=== PATIENT | female | born 1965 | race Caucasian/White ===

== ENCOUNTER → 2016-09-03 | Outpatient (CLI) | payer BC ==
--- NOTE | 2016-09-03 09:23 | KCIC ---
PROCEDURE MRI right shoulder without contrast dated 09/03/2016. HISTORY Right shoulder pain. Decreased range of motion. TECHNIQUE Routine multiplanar multisequence MR imaging right shoulder performed. No contrast administered. COMPARISON None. FINDINGS Large full-thickness tear of the rotator cuff involving the entire supraspinatus tendon and likely the upper margin of the subscapularis. The defect measures 3.2 x 3.1 centimeters AP and transverse dimensions. The torn portion of the cuff is retracted to about the 1 o'clock position. Increased signal and thickening of the infra spinatus tendon with suspected minimal full-thickness involvement of its anterior fibers. Teres minor is intact. Mild hypertrophic change of the acromioclavicular joint with mild undersurface spurring of the distal clavicle and acromion. Small amount of subacromial/subdeltoid bursal fluid. The acromion is type 1 morphology. Intermediate T2 signal and thinning of the long head biceps tendon proximally. Extra-articular portion is visualized in the bicipital groove. Biceps anchor ill-defined. Blunted morphology of the posterior superior labrum with suspected tiny paralabral cysts. Inferior labrum intact. Mild thinning of the glenoid articular cartilage. Small glenohumeral joint effusion. No loose body. Mild fatty atrophy and volume loss of the supraspinatus muscle. No significant intramuscular edema. Suprascapular and spinoglenoid notches are clear. IMPRESSION - Rotator cuff tendinopathy with large full thickness rotator cuff tear as described above. - Moderate AC joint arthropathy with undersurface spurring. Small subacromial/subdeltoid bursal effusion. - SLAP tear of the posterior superior labrum with suspected small paralabral cysts. - Poor visualization of the proximal long head biceps tendon, likely related to severe tendinosis and/or partial tearing. - Mild degenerative change of the glenohumeral joint with glenoid chondromalacia. Electronically signed by: Brennan Hernandez (Sep 03, 2016 09:22:19)
== END | disposition home or self-care (01) ==
LOC: KCIC MRI 08:18
PROVIDERS: ATTEND Family Medicine
DX: M75.121 Complete rotator cuff tear or rupture of right shoulder, not specified as traumatic (principal); M25.411 Effusion, right shoulder; S43.439A Superior glenoid labrum lesion of unspecified shoulder, initial encounter; M94.211 Chondromalacia, right shoulder; M19.011 Primary osteoarthritis, right shoulder; X58.XXXA Exposure to other specified factors, initial encounter; Y99.8 Other external cause status; Y92.89 Other specified places as the place of occurrence of the external cause; Y93.89 Activity, other specified
CPT/HCPCS: 73221

== ENCOUNTER 2017-04-14 20:24 | Emergency (ER) | payer BC ==
[~2017-04-14] VITALS: Ht 160 cm; Wt 95.3 kg
--- NOTE | 2017-04-14 20:43 | PHYS DOC ---
Adult General Chief Complaint Chief Complaint: ABDOMINAL PAIN HPI HPI Patient is a 51 year old female who presents with rate umbilical discomfort this started around 5 PM tonight and belching. She states it comes and waves and comes on for a while and goes when about 3 hours later. He returns. She also states she's felt nauseated but denies any vomiting. She denies any chest pain shortness of breath. She had a last bowel movement yesterday. She's had a cholecystectomy in the past and has lost 70 pounds over the last year after being put on phentermine and a diet. She states she feels irritated her esophagus. She's been belching so much. Review of Systems Review of Systems Constitutional: Denies fever or chills [] Eyes: Denies change in visual acuity, redness, or eye pain [] HENT: Denies nasal congestion or sore throat [] Respiratory: Denies cough or shortness of breath [] Cardiovascular: No additional information not addressed in HPI [] GI: Denies abdominal pain, nausea, vomiting, bloody stools or diarrhea [] : Denies dysuria or hematuria [] Musculoskeletal: Denies back pain or joint pain [] Integument: Denies rash or skin lesions [] Neurologic: Denies headache, focal weakness or sensory changes [] Endocrine: Denies polyuria or polydipsia [] Current Medications Current Medications Current Medications Medications (Trade) Dose Ordered Sig/Micah Start Time Stop Time Status Last Admin Dose Admin Info (Do NOT chart on this entry -- for MONITORING) 1 each PRN DAILY PRN 04/14/17 22:45 04/16/17 22:44 Iohexol (Omnipaque 240 Mg/ml) 50 ml STK-MED ONCE 04/14/17 22:34 04/14/17 22:35 DC Iohexol (Omnipaque 300 Mg/ml) 75 ml STK-MED ONCE 04/14/17 22:34 04/14/17 22:35 DC Potassium Chloride (Klor-Con) 20 meq STK-MED ONCE 04/15/17 00:49 04/15/17 00:50 DC Simethicone (Gas-X) 80 mg PRN AFTMEALHC PRN 04/15/17 01:00 Allergies Allergies Allergies Coded Allergies Type Severity Reaction Last Updated Verified No Known Drug Allergies 04/14/17 No Physical Exam Physical Exam Constitutional: Well developed, well nourished, no acute distress, non-toxic appearance. [] HENT: Normocephalic, atraumatic, bilateral external ears normal, oropharynx moist, no oral exudates, nose normal. [] Eyes: PERRLA, EOMI, conjunctiva normal, no discharge. [] Neck: Normal range of motion, no tenderness, supple, no stridor. [] Cardiovascular:Heart rate regular rhythm, no murmur [] Lungs & Thorax: Bilateral breath sounds clear to auscultation [] Abdomen: Bowel sounds hyperactive, soft, no tenderness, no masses, no pulsatile masses. [] Skin: Warm, dry, no erythema, no rash. [] Back: No tenderness, no CVA tenderness. [] Extremities: No tenderness, no cyanosis, no clubbing, ROM intact, no edema. [] Neurologic: Alert and oriented X 3, normal motor function, normal sensory function, no focal deficits noted. [] Psychologic: Affect normal, judgement normal, mood normal. [] Current Patient Data Vital Signs Vital Signs Date Time Temp Pulse Resp B/P (MAP) Pulse Ox O2 Delivery O2 Flow Rate FiO2 04/14/17 22:50 70 13 104/64 (77) 98 04/14/17 21:20 Room Air 04/14/17 21:03 98.3 98.3 Lab Values Laboratory Tests Test 04/14/17 20:35 04/14/17 20:50 04/14/17 23:35 04/14/17 23:40 Urine Opiates Screen Neg (NEG) Urine Methadone Screen Neg (NEG) Urine Barbiturates Neg (NEG) Urine Phencyclidine Screen Neg (NEG) Urine Amphetamine/Methamphetamine Pos (NEG) Urine Benzodiazepines Screen Neg (NEG) Urine Cocaine Screen Neg (NEG) Urine Cannabinoids Screen Neg (NEG) Urine Ethyl Alcohol Neg (NEG) White Blood Count 13.1 x10^3/uL (4.0-11.0) H Red Blood Count 4.77 x10^6/uL (3.50-5.40) Hemoglobin 14.7 g/dL (12.0-15.5) Hematocrit 43.0 % (36.0-47.0) Mean Corpuscular Volume 90 fL (79-100) Mean Corpuscular Hemoglobin 31 pg (25-35) Mean Corpuscular Hemoglobin Concent 34 g/dL (31-37) Red Cell Distribution Width 13.3 % (11.5-14.5) Platelet Count 269 x10^3/uL (140-400) Neutrophils (%) (Auto) 76 % (31-73) H Lymphocytes (%) (Auto) 16 % (24-48) L Monocytes (%) (Auto) 6 % (0-9) Eosinophils (%) (Auto) 1 % (0-3) Basophils (%) (Auto) 0 % (0-3) Neutrophils # (Auto) 10.0 x10^3uL (1.8-7.7) H Lymphocytes # (Auto) 2.1 x10^3/uL (1.0-4.8) Monocytes # (Auto) 0.8 x10^3/uL (0.0-1.1) Eosinophils # (Auto) 0.1 x10^3/uL (0.0-0.7) Basophils # (Auto) 0.0 x10^3/uL (0.0-0.2) Prothrombin Time 11.9 SEC (11.7-14.0) Prothrombin Time INR 0.9 (0.8-1.1) Sodium Level 139 mmol/L (136-145) Potassium Level 3.3 mmol/L (3.5-5.1) L Chloride Level 102 mmol/L (98-107) Carbon Dioxide Level 27 mmol/L (21-32) Anion Gap 10 (6-14) Blood Urea Nitrogen 22 mg/dL (7-20) H Creatinine 0.8 mg/dL (0.6-1.0) Estimated GFR (Cockcroft-Gault) 75.0 Glucose Level 101 mg/dL (70-99) H Calcium Level 9.3 mg/dL (8.5-10.1) Magnesium Level 1.8 mg/dL (1.8-2.4) Total Bilirubin 0.3 mg/dL (0.2-1.0) Direct Bilirubin 0.1 mg/dL (0.0-0.2) Aspartate Amino Transferase (AST) 19 U/L (15-37) Alanine Aminotransferase (ALT) 44 U/L (14-59) Alkaline Phosphatase 86 U/L (46-116) Creatine Kinase 44 U/L (26-192) 37 U/L (26-192) Creatine Kinase MB (Mass) 0.6 ng/mL (0.0-3.6) 0.6 ng/mL (0.0-3.6) Creatine Kinase MB Relative Index 1.4 % (0-4) 1.6 % (0-4) Troponin I Quantitative < 0.017 ng/mL (0.000-0.055) < 0.017 ng/mL (0.000-0.055) EK-Aud-F-Type Natriuretic Peptide 66 pg/mL (0-124) Total Protein 7.7 g/dL (6.4-8.2) Albumin 4.0 g/dL (3.4-5.0) Lipase 194 U/L (73-393) Thyroid Stimulating Hormone (TSH) 1.000 uIU/mL (0.358-3.74) Laboratory Tests 04/14/17 20:50 Laboratory Tests 04/14/17 20:50 EKG EKG [] Radiology/Procedures Radiology/Procedures View chest x-ray did not show any focal consolidations, bony abnormalities, or pneumothorax, as interpreted by me. [facility] [address] [place] [address] IMAGING REPORT Signed PATIENT: BRANDAN LAWS ACCOUNT: [id number] : 1965 LOCATION: ER AGE: 51 SEX: F EXAM STATUS: REG ER ORD. PHYSICIAN: ABHISHEK CALABRESE MD REASON: ABDOMEN PAIN PROCEDURE: CT ABD PELV W/ORAL&IV CONTRAST PQRS Compliance Statement: One or more of the following individualized dose reduction techniques were utilized for this examination: 1. Automated exposure control 2. Adjustment of the mA and/or kV according to patient size 3. Use of iterative reconstruction technique CT ABD PELV W/ORAL IV CONTRAST Clinical Indication: ABDOMEN PAIN Comparison: None. Technique: Helical CT imaging of the abdomen and pelvis is performed after 75 cc Omnipaque 300 IV contrast. Oral contrast also given. Findings: Lung bases essentially clear. Calcified granuloma posterior left lower lobe. Cardiac size normal. Tiny hiatal hernia. There is intrahepatic and extra hepatic duct dilation. There is about truncation of distal common bile duct, coronal image 26. The pancreatic duct is not dilated. Gallbladder not seen, likely surgically absent. Spleen, pancreas, adrenal glands, and abdominal aorta caliber are normal. Bilateral nonobstructing renal calculi. Calculi are sub-5 mm in size. No hydronephrosis. Stomach unremarkable. No dilated small bowel. Mild to moderate stool throughout the colon. No evidence of colitis. The appendix is not seen, no secondary signs of appendicitis. No abdominal adenopathy or free fluid. Atrophic uterus. Urinary bladder normal. No pelvic free fluid. No acute bone abnormality. Degenerative arthropathy of the right hip. IMPRESSION: 1. Intrahepatic and extra hepatic duct dilation. Abrupt truncation of the common bile duct near the ampulla. Pancreatic duct is not dilated. Considerations include stricture, distal mass, or nonradiodense stone. Suggest MRCP for further evaluation. 2. Bilateral nonobstructing renal calculi. Electronically signed by: Rafiq Harper MD (04/15/2017 12:57 AM) [facility] DICTATED and SIGNED BY: RAFIQ HARPER MD DATE: 04/15/1751 CC: ABHISHEK CALABRESE MD; HERSON JUDD DO ~ Impressions: Abdominal pain Hypokalemia Course & Med Decision Making Course & Med Decision Making Pertinent Labs and Imaging studies reviewed. (See chart for details) Labs show slightly low potassium, urine, remainder of the labs are nonacute. CT abdomen and pelvis also nonacute. Her troponins are also negative 2. She felt better with Gas-X. We'll discharge with recognition of urine Gas-X and a follow up her primary care physician. Return precautions given she is agreeable to the plan and being discharged in stable condition. Addendum by Dr. Rebecca Carpenter M.D. at 0129: I followed up at the patient's CT results. I informed the patient that there were findings of intra-and extrahepatic bile duct dilation. Given the patient's history cholecystectomy this may be a postsurgical finding, however I did inform the patient that the radiologist recommended MRCP to be done for further evaluation. The patient's lab results show no elevation in her bilirubin or LFTs and patient's symptoms are under reasonable control at this time. No other acute findings were found on the patient's CT. The patient states that she would like to go home and stated that she would follow-up with her primary doctor and inform her doctor of this recommendation. Advised return emergency department for any worsening symptoms. Patient voiced understanding and in agreement with treatment plan. Dragon Disclaimer Dragon Disclaimer This electronic medical record was generated, in whole or in part, using a voice recognition dictation system. Departure Departure Impression: Primary Impression: Hypokalemia Additional Impression: Abdominal pain Disposition: HOME, SELF-CARE Condition: STABLE Referrals: HERSON JUDD DO (PCP) Patient Instructions: Abdominal Pain (Nonspecific) Additional Instructions: Your blood work showed your potassium level was slightly low and this was replaced with a pill. The CAT scan of your abdomen pelvis did not show any acute abnormalities. Your being discharged home. You can use Gas-[facility] they can purchase [id number] as needed. Please follow the instructions on the package. He should follow up with her primary care physician within the next week. If your pain gets worse, you have uncontrolled nausea vomiting, fevers, or other concerns please return back to emergency department. Problem Qualifiers Additional Impression: Abdominal pain Abdominal location: lower abdomen, unspecified Qualified Codes: R10.30 - Lower abdominal pain, unspecified ABHISHEK CALABRESE MD Apr 14, 2017 20:43 REBECCA CARPENTER MD Apr 15, 2017 01:30
[2017-04-14 21:01] LABS: BASO % 0 % (0-3); EOS % 1 % (0-3); HEMOGLOBIN 14.7 g/dL (12.0-15.5); LYMPH # 2.1 x10^3/uL (1.0-4.8); LYMPH % 16 % (24-48); MEAN CORPUSCULAR HEMOGLOBIN 31 pg (25-35); MEAN CORPUSCULAR HGB CONC 34 g/dL (31-37); MEAN CORPUSCULAR VOLUME 90 fL (79-100); MONO % 6 % (0-9); NEUT % 76 % (31-73); PLATELET COUNT 269 x10^3/uL (140-400); RED BLOOD COUNT 4.77 x10^6/uL (3.50-5.40); RED CELL DISTRIBUTION WIDTH 13.3 % (11.5-14.5); WHITE BLOOD COUNT 13.1 x10^3/uL (4.0-11.0)
[2017-04-14 21:10] LABS: INR 0.9 (0.8-1.1); PROTHROMBIN TIME PATIENT 11.9 SEC (11.7-14.0)
[2017-04-14 21:11] LABS: BARBITURATES NEG (NEG); BENZODIAZEPINES NEG (NEG); CANNABINOIDS NEG (NEG); COCAINE NEG (NEG); METHADONE NEG (NEG); OPIATES NEG (NEG); PHENCYCLIDINE NEG (NEG)
[2017-04-14 21:23] LABS: CALCIUM 9.3 mg/dL (8.5-10.1); CREATININE 0.8 mg/dL (0.6-1.0); POTASSIUM 3.3 mmol/L (3.5-5.1)
[2017-04-14 21:28] LABS: DIRECT BILIRUBIN 0.1 mg/dL (0.0-0.2); MAGNESIUM 1.8 mg/dL (1.8-2.4); TOTAL BILIRUBIN 0.3 mg/dL (0.2-1.0); TOTAL PROTEIN 7.7 g/dL (6.4-8.2)
[2017-04-14 21:37] LABS: CKMB MASS 0.6 ng/mL (0.0-3.6)
[2017-04-14] MEDS ORDERED: SIMETHICONE 80 MG TAB.CHEW PO ONE (22:30)
[2017-04-14] MEDS ORDERED: IOHEXOL 300 MG/ML 75 ML VIAL ONE (22:34)
[2017-04-14] MEDS ORDERED: IOHEXOL 240 MG/ML 50ML VIAL. ONE (22:34)
[2017-04-14] MEDS ORDERED: CONTRAST GIVEN MC PRN (22:45)
[2017-04-14] MEDS ORDERED: IOHEXOL 300 MG/ML 75 ML VIAL IV ONE (22:45)
[2017-04-14] MEDS ORDERED: IOHEXOL 240 MG/ML 50ML VIAL. PO ONE (22:45)
[2017-04-14 22:50] VITALS: BP 104/64
[2017-04-15 00:02] LABS: CKMB MASS 0.6 ng/mL (0.0-3.6)
[2017-04-15] MEDS ORDERED: POTASSIUM CHLORIDE 20 MEQ TABLET.ER. PO ONE ×2 (00:49→01:00)
[2017-04-15] MEDS ORDERED: SIMETHICONE 80 MG TAB.CHEW PO PRN (01:00)
--- NOTE | 2017-04-15 01:00 | RAD ---
PQRS Compliance Statement: One or more of the following individualized dose reduction techniques were utilized for this examination: 1. Automated exposure control 2. Adjustment of the mA and/or kV according to patient size 3. Use of iterative reconstruction technique CT ABD PELV W/ORAL IV CONTRAST Clinical Indication: ABDOMEN PAIN Comparison: None. Technique: Helical CT imaging of the abdomen and pelvis is performed after 75 cc Omnipaque 300 IV contrast. Oral contrast also given. Findings: Lung bases essentially clear. Calcified granuloma posterior left lower lobe. Cardiac size normal. Tiny hiatal hernia. There is intrahepatic and extra hepatic duct dilation. There is about truncation of distal common bile duct, coronal image 26. The pancreatic duct is not dilated. Gallbladder not seen, likely surgically absent. Spleen, pancreas, adrenal glands, and abdominal aorta caliber are normal. Bilateral nonobstructing renal calculi. Calculi are sub-5 mm in size. No hydronephrosis. Stomach unremarkable. No dilated small bowel. Mild to moderate stool throughout the colon. No evidence of colitis. The appendix is not seen, no secondary signs of appendicitis. No abdominal adenopathy or free fluid. Atrophic uterus. Urinary bladder normal. No pelvic free fluid. No acute bone abnormality. Degenerative arthropathy of the right hip. IMPRESSION: 1. Intrahepatic and extra hepatic duct dilation. Abrupt truncation of the common bile duct near the ampulla. Pancreatic duct is not dilated. Considerations include stricture, distal mass, or nonradiodense stone. Suggest MRCP for further evaluation. 2. Bilateral nonobstructing renal calculi. Electronically signed by: Rafiq Harper MD (04/15/2017 12:57 AM) [facility]
--- NOTE | 2017-04-15 06:13 | EKG ---
[facility] [address] [place] [address] Test Date: 2017-04-14 Test Time: 21:27:49 Pat Name: BRANDAN LAWS Department: Room: Gender: F Watch [employer] As[employer]er: : 1965 Requested By: ABHISHEK CALABRESE Order Number: [id number] Reading MD: Santhosh Clancy Measurements Intervals [place] Rate: 72 P: 38 [place]: 190 QRS: 49 QRSD: 90 T: 47 QT: 408 QTc: 448 Interpretive Statements SINUS RHYTHM Electronically Signed On 04-15-2017 12:04:52 CDT by Santhosh Clancy
--- NOTE | 2017-04-15 07:42 | RAD ---
Exam performed: One view chest. Indication: Epigastric discomfort today Date of Service: 04/14/2017 10:42 PM Comparison: None available. Single AP upright portable view chest findings: Cardiomediastinal silhouette is within limits of normal. No acute infiltrates, effusion or pneumothorax is detected. The bony structures are normal. Impression: No acute cardiopulmonary process is detected.
== END 2017-04-15 01:39 | disposition home or self-care (01) ==
LOC: ER 20:24
DX: R10.33 Periumbilical pain (principal); E87.6 Hypokalemia; R11.0 Nausea
CPT/HCPCS: 36415; 71010; 74177; 80048; 80076; 80307; 82553; 83690; 83735; 83880; 84443; 84484; 85025; 85610; 93005; 99285; Q9966; Q9967; G0479

== ENCOUNTER → 2017-05-15 | Outpatient (CLI) | payer BC ==
--- NOTE | 2017-05-15 10:53 | RAD ---
Examination: MRCP without contrast History: History of cholecystectomy, abnormal CT scan, abdominal pain Comparison: None available Technique: Multiplanar,, multisequence MRCP of the abdomen was performed Findings: Prior changes of cholecystectomy. Prominent dilated appearing intrahepatic bile ducts and the common bile duct with the common bile duct measuring 1.5 cm in transverse dimension. The condyles bile duct is dilated in the proximal and midportion. Distally there is abrupt truncation of the common bile duct. The pancreatic duct is not dilated. The signal characteristics of liver, spleen, adrenals grossly appears unremarkable. The visualized pancreas grossly appears unremarkable. Impression: Moderately dilated intrahepatic bile duct and common bile duct with abrupt truncation of the common bile duct distally. Differential includes stricture or distal CBD mass or stone. Consider follow-up ERCP for further evaluation.
== END | disposition home or self-care (01) ==
LOC: MRI 08:32
PROVIDERS: ATTEND Internal Medicine Gastroenterology
DX: R10.33 Periumbilical pain (principal); Z90.49 Acquired absence of other specified parts of digestive tract; R94.8 Abnormal results of function studies of other organs and systems
CPT/HCPCS: 74181